=== PATIENT | male | born 1950 ===

== ENCOUNTER 2016-11-16 10:43 | Emergency (ER) | payer OTHER ==
--- NOTE | 2016-11-16 15:16 | UC ---
Skin Complaint HPI - HPI Summary HPI Summary: THREE DAYS OF PAINFUL RASH THAT HAS DEVELOPED ON RIGHT ARM AND HAND, APPEARS TO BE SPREADING - History of Current Complaint Chief Complaint: UCRas Time Seen by Provider: 11/16/16 12:35 Stated Complaint: RASH Hx Obtained From: Patient, Family/Model And Pattern Supervisor Onset/Duration: Gradual Onset, Lasting Days, Worse Since - DAILY Timing: Constant Onset Severity: Mild Current Severity: Moderate Pain Intensity: 0 Pain Scale Used: 0-10 Numeric Location: Discrete - RIGHT ARM Character: Pruritus, Redness Aggravating: Nothing Alleviating: Nothing Associated Signs & Symptoms: Positive: Negative, Rash, Tenderness. Negative: Hoarseness, Throat Tightening, Syncope, Drainage, Bruising Related History: Possible Reaction to: Environmental Exposure - Allergy/Home Medications Allergies/Adverse Reactions: Allergies Allergy/AdvReac Type Severity Reaction Status Date / Time No Known Allergies Allergy Verified 11/16/16 12:10 Review of Systems Constitutional: Negative Skin: Rash Eyes: Negative ENT: Negative Respiratory: Negative Cardiovascular: Negative Gastrointestinal: Negative Genitourinary: Negative Motor: Negative Neurovascular: Negative Musculoskeletal: Negative Neurological: Negative Psychological: Negative All Other Systems Reviewed And Are Negative: Yes PMH/Surg Hx/FS Hx/Imm Hx Previously Healthy: Yes - Surgical History Surgical History: None - Family History Known Family History: Positive: Other - SANDRA GRAVPHILLIP - Social History Occupation: Employed Full-time Lives: With Family Alcohol Use: None Substance Use Type: None Smoking Status (MU): Never Smoked Tobacco Physical Exam Triage Information Reviewed: Yes Appearance: Well-Appearing, No Pain Distress, Well-Nourished Vital Signs: Initial Vital Signs Temp 98.6 F 11/16/16 12:11 Pulse 78 11/16/16 12:11 Resp 16 11/16/16 12:11 BP 133/91 11/16/16 12:11 Pulse Ox 99 11/16/16 12:11 Vital Signs Reviewed: Yes Eye Exam: Normal Eyes: Positive: Conjunctiva Clear ENT Exam: Normal ENT: Positive: Normal ENT inspection, Hearing grossly normal, Pharynx normal, TMs normal Dental Exam: Normal Neck exam: Normal Neck: Positive: Supple, Nontender, No Lymphadenopathy Respiratory Exam: Normal Respiratory: Positive: Chest non-tender, Lungs clear, Normal breath sounds, No respiratory distress, No accessory muscle use Cardiovascular Exam: Normal Cardiovascular: Positive: RRR, No Murmur, Pulses Normal, Brisk Capillary Refill Abdominal Exam: Normal Musculoskeletal Exam: Normal Musculoskeletal: Positive: Strength Intact, ROM Intact, No Edema Neurological Exam: Normal Psychological Exam: Normal Psychological: Positive: Normal Response To Family Skin: Positive: rashes - ERRETHEMATOUS VESICULAR RASH ALONG ASPECT OF ULNAR NERVE , MILDLY INVOLVING 4TH & 5TH FINGERS DISTALLLY TO LATERAL ELBOW PROXIMALLY Course/Dx - Differential Diagnoses - Skin Complaint Differential Diagnoses: Cellulitis, Contact Dermatitis, Impetigo, Local Allergic Reaction, MRSA, Poison Kristine, Poison Leighton, Varicella Zoster - Diagnoses Provider Diagnoses: VARICELLA ZOSTER Discharge - Discharge Plan Condition: Stable Disposition: HOME Prescriptions: Famciclovir(NF) [Famvir(NF)] 500 mg PO TID #21 tab Patient Education Materials: Shingles (ED) Referrals: Shyanne Newby NP [Primary Care Provider] -
== END 2016-11-16 13:06 | disposition home or self-care (01) ==
LOC: UCEAST 10:43
DX: B02.8 Zoster with other complications (principal)
CPT/HCPCS: 99202; G0463